=== PATIENT | female | born 1990 | race Caucasian/White ===

== ENCOUNTER → 2016-06-21 | Outpatient (CLI) | payer OTHER ==
--- NOTE | 2016-06-21 14:30 | US ---
June 21, [address] Fran Delgado, Thank you for requesting a ultrasound to evaluate the routine anatomy for your patient, Mrs. Yves larkin. As you know, Shanda is a 26 year old G 1, P 0 with a faustin dating 22 w 2 d; ROSARIO of 10/23/16 by LMP of 01/17/16. Aneuploidy screening revealed reassuring results for her Quad screen. ULTRASOUND Number of fetuses: 1 Placental location: Anterior, no previa Placental cord insertion: Intraplacental presentation: Breech Cervix: 3.6 cm viewed transabdominally Maximum Vertical Pocket: 5.5 cm The adnexa were evaluated. No pathology was seen. Right ovary is not seen on today's ultrasound. Left ovary is not seen on today's ultrasound. MEASUREMENTS: Biparietal diameter: 55 mm 22 weeks, 5 days Head circumference: 200 mm 22 weeks, 1 days Abdominal circumference: 184 mm 23 weeks, 2 days Femur length: 34 mm 20 weeks, 6 days Humerus length: 33 mm 21 weeks, 1 days Transcerebellar diameter: 23 mm 21 weeks, 3 days Average ultrasound age: 22 weeks, 2 days Estimated weight: 479 gm weight percentile: 36% ANATOMY Supratentorial brain: Normal including views of the falx, cavum septum pellucidum and choroids Lateral Ventricle: Normal, measuring 5.1 mm Posterior fossa: Normal including the cerebellum and cisterna magna Spine: Normal Nuchal fold: 4.8 mm normal Face: Normal views of the lip and nose area Profile: Normal Palate: Normal appearance of the alveolar ridge Heart: Four Chamber View: Normal including the intraventricular Septum LVOT: Normal RVOT: Limited views 3VV: Normal Tracheal View: Normal Aortic Arch: Seen Ductal Arch: Seen SVC/IVC: Seen Heart Rate 147 bpm Diaphragm: Normal appearance without overt abnormality detected Stomach: Normal Umbilical cord insertion: Normal Right kidney: Normal Left kidney: Normal Bladder: Normal Number of cord vessels: Three Upper extremities: Normal Lower extremities: Normal Gender: Undisclosed IMPRESSION: 1. Intrauterine at 22 w 2 d, ultrasound is consistent with her established ROSARIO of 10/23/16 . 2. Normal anatomical survey. 3. Cervical length is normal at 3.6 cm without evidence of insufficiency. RECOMMENDATIONS: I was pleased to review today's ultrasound with your patient, Shanda. I reassured her that the baby is growing appropriately with normal amniotic fluid volume. Our detailed review of the anatomy di d not reveal any overt abnormalities. The following anatomy was not well seen: right ventric ular outflow tract. Future ultrasound and consultation is left to your clinical discretion. Thank you for allowing us the opportunity to evaluate your patient. Should you have any further ques tions or concerns please do not hesitate to contact me. No E&M. Reena Granados MD Data Control Clerk Supervisor Maternal Medicine Diagnosis Department of Obstetrics & Gynecology [facility]
--- NOTE | 2016-06-21 15:58 | US ---
Ultrasound Obstetric Detailed Evaluation Indication: The estimated gestational age by LMP is 22 weeks and 2 days yielding an EDC of October 23. Comparison: None. Findings: Number: 1 Presentation: Breech Placental Location: Anterior without previa Cervix: 3.6 cm MVP: 5.5 cm Heart Rate: 147 bpm. Ovaries not visualized. Biometry: Biparietal Diameter: 54.72 mm 22 weeks, 5 days Head Circumference: 199.66 mm 22 weeks, 1 days Abdominal Circumference: 183.67 mm 23 weeks, 2 days Femur Length: 34.22 mm 20 weeks, 6 days Humerus Length: 32.99 mm 21 weeks, 1 days Transcerebellar Diameter: 22.99 mm 21 weeks, 3 days HC/AC: 1.09 (1.06-1.25) FL/BPD: 63% FL/AC: 19% Average Ultrasound Age: 22 weeks, 2 days EDC Based on Today's Average Ultrasound Age: October 23, 2016 Estimated weight is 479 gms +/- 70 gms. The estimated weight is at the 36 % based on previous dating. ANATOMY SURVEY: Supratentorial Brain: Normal Posterior Fossa: Normal Spine: Normal Nuchal fold: Normal Nose and Lips: Normal Facial Profile: Normal Heart: Four chamber heart. 147 bpm. Intact intraventricular septum. Cardiac Outflow Tracts: Limited Stomach: Normal Umbilical Cord Insertion: Normal Kidneys: Normal, no pyelectasis Bladder: Normal Number of Cord Vessels: Three Upper Extremities: Visualized Lower Extremities: Visualized. Impression: 1. Living faustin in breech presentation. 2. Size concordant with dates. 3. No overt anomalies detected. 4. Please see Dr. Reena Granados consult and recommendations.
== END ==
LOC: FIMAGING 12:44
PROVIDERS: ATTEND Obstetrics & Gynecology
DX: Z36 Encounter for antenatal screening of mother (principal); Z3A.22 22 weeks gestation of pregnancy

== ENCOUNTER 2016-10-19 19:05 | Inpatient (IN) | payer OTHER ==
[2016-10-19] MEDS ORDERED: PROMETHAZINE HCL 25 MG TAB PO ONE (19:39)
[2016-10-19] MEDS ORDERED: LIDOCAINE 1% 300 MG/30 ML SDV ONE (20:27)
[2016-10-19] MEDS ORDERED: TERBUTALINE SULFATE 1 MG/ML VIAL ONE (20:28)
[2016-10-19] MEDS ORDERED: AMMONIA AROMATIC 1 EACH AMP IH ONE (20:28)
[2016-10-19] MEDS ORDERED: OLIVE OIL 118 ML BTL ONE (20:28)
[2016-10-19] MEDS ORDERED: MISOPROSTOL 200 MCG TAB ONE (20:29)
[2016-10-19] MEDS ORDERED: OXYTOCIN 10 UNIT/ML VIAL ONE (20:29)
[2016-10-19] MEDS ORDERED: EPSOM SALT 454 GM TP PRN (22:00)
[2016-10-19] MEDS ORDERED: OLIVE OIL 118 ML BTL MISC PRN (22:00)
[2016-10-19] MEDS ORDERED: OXYTOCIN/RINGERS LACTATE 1,000 ML IV PRN (22:00)
[2016-10-19] MEDS ORDERED: TERBUTALINE SULFATE 1 MG/ML VIAL IV PRN (22:00)
[2016-10-19] MEDS ORDERED: LR 1,000 ML IV PRN (22:00)
[2016-10-19 22:21] LABS: % IMMATURE GRANULYOCYTES 0.5 % (0.0-1.1); ABSOLUTE IMMATURE GRANULOCYTES 0.05 10^3/uL (0.00-0.10); ADD DIFF? NO; ADD MORPH? NO; ADD SCAN? NO; ATYPICAL LYMPHOCYTE FLAG 0 (0-99); FRAGMENT RBC FLAG 0 (0-99); HEMATOCRIT 36.2 % (38.0-47.0); HEMOGLOBIN 12.6 g/dL (12.6-16.3); LEFT SHIFT FLG 10 (0-99); LIPEMIA HEMOLYSIS FLAG 90 (0-99); MEAN CELL HEMOGLOBIN 31.1 pg (27.9-34.1); MEAN CELL HEMOGLOBIN CONCENTR. 34.8 g/dL (32.4-36.7); MEAN CELL VOLUME 89.4 fL (81.5-99.8); MEAN PLATELET VOLUME 13.9 fL (8.7-11.7); PLATELET CLUMPS FLAG 20 (0-99); PLATELET COUNT 140 10^3/uL (150-400); RED BLOOD CELL COUNT 4.05 10^6/uL (4.18-5.33); RED CELL DISTRIBUTION WIDTH 12.6 % (11.5-15.2)
[2016-10-20] MEDS ORDERED: PHENYLEPHRINE HCL 100 MCG/ML SYR ONE (01:21)
[2016-10-20] MEDS ORDERED: BUPIVACAINE 0.25% 30 ML SDV ONE (01:21)
[2016-10-20] MEDS ORDERED: fentaNYL 2MCG/ML/BUP 0.1% RTU 100 ML BAG EP ONE (01:21)
[2016-10-20] MEDS ORDERED: fentaNYL 100 MCG/2 ML INJ ONE (01:22)
[2016-10-20] MEDS ORDERED: NALOXONE HCL 0.4 MG/ML INJ IVP PRN (02:02)
[2016-10-20] MEDS ORDERED: PHENYLEPHRINE HCL 100 MCG/ML SYR IVP PRN (02:02)
[2016-10-20] MEDS ORDERED: ONDANSETRON 4 MG/2 ML VIAL IVP PRN (02:02)
--- NOTE | 2016-10-20 02:29 | GHP ---
[f rep st] HISTORY AND PHYSICAL Duplicate document created in error MTDD
[2016-10-20] MEDS ORDERED: LR 500 ML IV SCH (02:30)
[2016-10-20] MEDS ORDERED: fentaNYL 2MCG/ML/BUP 0.1% RTU 100 ML EP SCH (02:30)
--- NOTE | 2016-10-20 03:04 | GHP ---
[f rep st] HISTORY AND PHYSICAL DATE OF ADMISSION: 10/19/2016 CHIEF COMPLAINT: Contractions. HISTORY OF PRESENT ILLNESS: Patient is a 26-year-old 1, para 0 at 39 weeks 4 days by last menstrual period and 7 week ultrasound who presents to Labor and Delivery with a chief complaint of regular painful uterine contractions. On initial presentation, she was found to be 1 cm and had a reassuring status. She requested analgesia and received IV and intramuscular morphine. Approximately 2 hours later, she again had painful uterine contractions and was rechecked and continued to be 1 cm dilated on exam. She requested additional morphine which was administered. Approximately 2 hours later, she again had painful contractions and at this time was found to be 7-8 cm. She is requesting epidural for pain management at this time. Her has been complicated by anxiety controlled on Lexapro and mild anemia for which she has taken iron. She received Tdap vaccine. REVIEW OF SYSTEMS: Negative apart from history of present illness. LABORATORY DATA: Notable for blood type B positive, antibody screen negative, Pap smear negative. Rubella immune. RPR nonreactive. Hep B surface antigen negative, HIV negative, gonorrhea and chlamydia negative, group B strep negative. Normal genetic screening normal 1 hour Glucola of 72. OBJECTIVE: VITAL SIGNS: Blood pressure 123/78, pulse 93, temperature 37.2. GENERAL: Alert, awake in no acute distress. Respirations are nonlabored. CARDIOVASCULAR: Regular rate and rhythm. ABDOMEN: Gravid, soft, nontender. EXTREMITIES: No edema. : Sterile vaginal exam 7-8 cm dilated with bulging bag of water per RN Elsy. Vertex presentation. PAST MEDICAL HISTORY: Anxiety. PAST SURGICAL HISTORY: Noncontributory. FAMILY HISTORY: Noncontributory MEDICATIONS: vitamins, DHA, Lexapro 20 mg, Pepcid 20 mg. ALLERGIES: None. SOCIAL HISTORY: She is . She denies tobacco, alcohol and drug use. MONITORING: baseline 120 beats per minute. Moderate variability. Positive accelerations. No decelerations. Tocometer regular contractions every 2-5 minutes. ASSESSMENT AND PLAN: Patient is a 26-year-old 1, para 0, at 39 weeks 4 days here in active labor. She has received a labor epidural and is comfortable. She is GBS negative. Her status is reassuring. We will plan to admit to labor and delivery for active labor. Plan expectant management with continuous monitoring at this time. Will expect spontaneous vaginal delivery. Plan routine intrapartum care. /[id number]/MODL MTDD
--- NOTE | 2016-10-20 06:47 | OBPROG ---
OBG Labor Progress Note Assessment/Plan: Assessment: 39w4d Active labor status reassuring SROM with large gush of clear fluid on exam 10 cm JOSSIE presentation Plan: Start pushing now Expect 10/20/16 06:46 Subjective: Comfortable with epidural. Slept well, feels refreshed Objective: 10/19/16 21:05 Patient ABO/Rh A POSITIVE 10/19/16 21:05 Gen: NAD, alert, awake - SVE Dilation (cm): 10 Effacement (%): 100 Station: +2 [place] Current Contraction Pattern: Regular Membranes: SROM Amniotic Fluid Color: Clear Oxytocin Orders Assessment - Pre-Induction/Augmentation Assessment Gestational Age: 39 week(s) and 3 day(s) - Heart Rate Pattern Schilling FHR Baseline (bpm): 120 FHR Category: 1 FHR Pattern Variability: Moderate ICD10 Worksheet Patient Problems: Problems Problem Status Onset Normal labor Acute - ICD10 Problem Qualifiers (1) Normal labor
[2016-10-20] MEDS ORDERED: OXYTOCIN 20 UNIT in LR 1,000 ML IV PRN (08:00)
[2016-10-20] MEDS ORDERED: OXYTOCIN 20 UNIT in LR 1,000 ML IV SCH (08:00)
--- NOTE | 2016-10-20 08:33 | OBDEL ---
Info Type: Vaginal GBS+: No Indications for Delivery: Spontaneous Labor Vaginal Delivery - Labor and Delivery Onset of Contractions Date: 10/19/16 Onset of Contractions Time: 07:00 Onset of Contractions Type: Spontaneous Rupture of Membranes Date: 10/20/16 Rupture of Membranes Type: Spontaneous Amniotic Fluid Color: Clear Dilation Complete Date: 10/20/16 Laceration: 2nd Degree Repair: 3-0 Vaginal Sponge Count Correct: Yes (correct) [place] Data [place] Delivery Date: 10/20/16 Delivery Time: 07:59 ROSARIO: 10/23/16 Gestational Age: 39 week(s) and 4 day(s) Sex of Infant: Male Score (1 Min): 8 Score (5 Min): 9 ICD10 Worksheet Patient Problems: Problems Problem Status Onset Normal labor Acute Vaginal delivery Acute - ICD10 Problem Qualifiers (1) Normal labor (2) Vaginal delivery
[2016-10-20] MEDS: IBUPROFEN 600 MG TAB PO PRN ×3 (09:24→21:16)
[2016-10-20] MEDS ORDERED: HYDROCORTISONE 0.5% CREAM TP PRN (12:01)
[2016-10-20] MEDS ORDERED: ACETAMINOPHEN 325 MG TAB PO PRN (12:01)
[2016-10-20] MEDS: DOCUSATE SODIUM 100 MG CAP PO PRN (21:16)
[2016-10-20] MEDS: ESCITALOPRAM OXALATE 10 MG TAB PO SCH (21:17)
[2016-10-20] MEDS ORDERED: ALPRAZolam 0.5 MG TAB PO PRN (21:28)
[2016-10-21] MEDS: IBUPROFEN 600 MG TAB PO PRN ×3 (07:40→20:23)
[2016-10-21 08:57] VITALS: O2SAT 96
[2016-10-21] MEDS: DOCUSATE SODIUM 100 MG CAP PO PRN ×2 (11:01→20:22)
--- NOTE | 2016-10-21 11:06 | OBPP ---
Progress Note Assessment/Plan: Assessment: PPD#1 s/p Rh pos, Rub imm Plan: Routine pp residential PPD#2 Subjective: Feels well. Had mild panic attack last night with a lot of family in the room, room was also too warm. Took xanax x 1, now feels much better, feels she will not need it again. Minimal pain. Minimal bleeding. Baby is latching well. Objective: 10/19/16 21:05 Patient ABO/Rh A POSITIVE 10/19/16 21:05 Temp Pulse Resp BP Pulse Ox 36.6 C 155 H 18 110/63 96 10/21/16 08:56 10/21/16 08:56 10/21/16 08:56 10/21/16 08:56 10/21/16 08:56 Gen: NAD Abd: soft, nontender, uterus firm below U Ext: no edema
[2016-10-21] MEDS: HYDROCODONE/APAP 5/325 TAB PO PRN ×3 (11:21→20:23)
[2016-10-21] MEDS: ESCITALOPRAM OXALATE 10 MG TAB PO SCH (20:23)
[2016-10-22] MEDS: HYDROCODONE/APAP 5/325 TAB PO PRN (02:30)
[2016-10-22] MEDS: IBUPROFEN 600 MG TAB PO PRN (02:31)
--- NOTE | 2016-10-22 08:39 | OBGCSDC ---
General Delivery Information - General Info : 1 Para: 1 Delivery Physician/CNM: Dominga Scmhitz Admission Date: 10/20/16 Labs: Patient ABO/Rh A POSITIVE 10/19/16 21:05 Hct 36.2 % (38.0-47.0) L 10/19/16 21:05 Vaginal - Diagnosis Labor: Spontaneous Rupture of Membranes Type: Spontaneous Amniotic Fluid Color: Clear Laceration: 2nd Degree Repair: 3-0 Delivery Events: None - Operations/Procedures L&D Analgesia/Anesthesia Type: Epidural - Delivery L&D Analgesia/Anesthesia Type: Epidural Data [place] Delivery Date: 10/20/16 Delivery Time: 06:53 ROSARIO: 10/23/16 Gestational Age: 39 week(s) and 6 day(s) Sex of : Male Weight (gm): 3232 g Score (1 Min): 8 Score (5 Min): 9 Discharge Information - Discharge Information Discharge Medications: Ibuprofen, Oxycodone, Vitamins Condition: Good Instruction/Follow Up: Six Weeks Discharge Physician/CNM: Courtney Brown
[2016-10-22 14:19] VITALS: BP 104/67; PULSE 84; RESP 16; TEMP 97.2
== END 2016-10-22 12:00 | disposition home or self-care (01) | DRG 775 ==
LOC: FLD 19:05 → OBSVTOIN 19:05 → FOB 10-20 10:10
PROVIDERS: ADMIT Obstetrics & Gynecology; ATTEND Obstetrics & Gynecology
PROC: 0KQM0ZZ Repair Perineum Muscle, Open Approach (ICD-10-PCS; principal; 2016-10-20)
PROC: 10E0XZZ Delivery of Products of Conception, External Approach (ICD-10-PCS; principal; 2016-10-20)
DX: O99.013 Anemia complicating pregnancy, third trimester (principal); O70.1 Second degree perineal laceration during delivery; D64.9 Anemia, unspecified; Z3A.39 39 weeks gestation of pregnancy; Z37.0 Single live birth
CPT/HCPCS: J1200; J2370; J2590; J3010; J3105